=== PATIENT | male | born 1965 | race Caucasian/White ===

== ENCOUNTER 2017-02-27 08:01 | Inpatient (IN) | payer OTHER, BC ==
[~2017-02-27] VITALS: Ht 182.9 cm; Wt 68.0 kg
--- NOTE | 2017-02-27 15:00 | NUR ---
Pre-Assessment note: Pt is a 51 yo male alert and oriented X4. Color good, skin warm and dry. Respirations even and unlabored. NKA. Pt has hx of lymphoma X 4 years. Being treated by PCP. Denies other med or psych hx. Vital signs: B/P 120/85 P: 89 T: 98.2 RR 16 Pulse OX 93% Pt is 6 feet tall and weighs 150 pounds. Substance use history: Heroin 1g daily smoke last use this AM 1/4g smoke Meth 1/4 g daily smoke Last use 1/8th g smoke
--- NOTE | 2017-02-27 16:00 | NUR ---
ADMISSION NOTE: Pt is a 51 yo male alert and oriented X4. Color good, skin warm and dry. Respirations even and unlabored. NKA. Pt has hx of lymphoma X 4 years. Being treated by PCP. Denies other med or psych hx. Vital signs: B/P 120/85 P: 89 T: 98.2 RR 16 Pulse OX 93% Initial COWS 4. Pt is 6 feet tall and weighs 150 pounds. Denies any seizure history. Skin intact. Denies SI/HI. Denies being hospitalized in the last 30 days. No home meds. Substance use history: Heroin 1g daily smoke last use this AM 1/4g smoke Meth 1/4 g daily smoke Last use this AM 1/8th g smoke
[2017-02-27] MEDS ORDERED: NICOTINE 7 MG/24HR PATCH TD PRN (16:30)
[2017-02-27] MEDS ORDERED: ONDANSETRON 4 MG/2 ML VIAL IM PRN (16:30)
[2017-02-27] MEDS ORDERED: HYDROXYZINE PAMOATE 25 MG CAPSULE PO PRN (16:30)
[2017-02-27] MEDS ORDERED: diphenhydrAMINE 50 MG CAPSULE PO PRN (16:30)
[2017-02-27] MEDS ORDERED: NICOTINE POLACRILEX 4 MG GUM-PK OF TEN BC PRN (16:30)
[2017-02-27] MEDS ORDERED: LOPERAMIDE HCL 2 MG CAPSULE PO PRN ×2 (16:30)
[2017-02-27] MEDS ORDERED: MAG HYDROX/AL HYDROX/SIMETH 30 ML LIQUID UDC PO PRN (16:30)
[2017-02-27] MEDS ORDERED: IBUPROFEN 600 MG TABLET PO PRN (16:30)
[2017-02-27] MEDS ORDERED: BUPRENORPHINE HCL 2 MG TAB.SUBL SL PRN (16:30)
[2017-02-27] MEDS ORDERED: ONDANSETRON ODT 4 MG TAB.RAPDIS SL PRN (16:30)
[2017-02-27] MEDS ORDERED: MIRALAX 17 GM POWD.PACK PO PRN (16:30)
[2017-02-27] MEDS ORDERED: ACETAMINOPHEN 325 MG TABLET PO PRN (16:30)
[2017-02-27] MEDS ORDERED: CLONIDINE HCL 0.1 MG TABLET PO PRN (16:30)
[2017-02-27] MEDS ORDERED: DICYCLOMINE HCL 20 MG TABLET PO PRN (16:30)
[2017-02-27 16:40] VITALS: BP 120/85
[2017-02-27 17:23] LABS: *AMPHETAMINE, URINE POSITIVE (NEGATIVE); *BARBITURATE, URINE NEGATIVE (NEGATIVE); *CANNABINOID, URINE NEGATIVE (NEGATIVE); *COCCAINE, URINE NEGATIVE (NEGATIVE); *OPIATE, URINE POSITIVE (NEGATIVE); *PHENCYCLIDINE SCREEN,URINE NEGATIVE (NEGATIVE)
[2017-02-27 18:40] LABS: BASOPHILS % (AUTO) 0.3 % (0.0-2.0); EOSINOPHILS # (AUTO) 0.1 K/uL (0.0-0.7); EOSINOPHILS % (AUTO) 1.6 % (0.0-7.0); HEMATOCRIT 35.4 % (40-50); LYMPHOCYTES # (AUTO) 1.5 K/UL (0.8-4.8); LYMPHOCYTES % (AUTO) 29.5 % (20.5-51.5); MEAN CORPUSCULAR HEMOGLOBIN 22.8 UUG (27.0-31.0); MEAN CORPUSCULAR HGB CONC 31 g/dL (32.0-37.0); MEAN CORPUSCULAR VOLUME 73.7 FL (82.0-92.0); MONOCYTES % (AUTO) 19.7 % (0.0-11.0); NEUTROPHILS # (AUTO) 2.6 K/UL (1.8-8.9); NEUTROPHILS % (AUTO) 48.9 % (38.5-71.5); PLATELET COUNT (AUTO) 278 K/UL (150-450); WHITE BLOOD COUNT (AUTO) 5.2 K/UL (4.0-11.2)
--- NOTE | 2017-02-27 18:42 | NUR ---
END OF SHIFT NOTE: Report given to retail shift leader nurse. 51 yo male admitted for medically supervised withdrawal from Heroin and Meth. Color good, skin warm and dry. Respirations even and unlabored. NKA. Pt has hx of lymphoma X 4 years. Vital signs have remained stable throughout shift. Initial CIWA 4. No prns given. Safety precautions observed. Call light within reach
[2017-02-27 18:43] LABS: ETHANOL < 3 MG/DL (0-0)
[2017-02-27 18:55] LABS: ALANINE AMINOTRANSFERASE 24 U/L (16-63); ALKALINE PHOSPHATASE 86 U/L (50-136); ASPARTATE AMINOTRANSFERASE 23 U/L (15-37); BILIRUBIN,TOTAL 0.2 mg/dL (0.2-1.0); CARBON DIOXIDE 30 mmol/L (21-32); CHLORIDE 105 mmol/L (98-107); GLUCOSE 80 mg/dL (74-106); MAGNESIUM 1.9 mg/dL (1.8-2.4); POTASSIUM 3.8 mmol/L (3.5-5.1); TOTAL PROTEIN, SERUM 5.8 g/dL (6.4-8.2); UREA NITROGEN, BLOOD 9 mg/dL (7-18)
--- NOTE | 2017-02-27 19:15 | NUR ---
START OF SHIFT NOTE : Pt. is 51 years old male admitted on 02/27/2017 for medically supervised withdrawal from Heroin and Meth. NKA. Pt has hx of lymphoma X 4 years. Pt. is in the room resting, complains of mild body ache, weakness, increased level of anxiety. Safety measures in place : bed on lowest position with side rails x2 up for safety, call light within reach. Will continue to monitor closely and offer help.
[2017-02-27 20:00] VITALS: BP 109/70
[2017-02-27 20:10] LABS: BAND % (MANUAL) 7 % (0-10); EOSINOPHILS % (MANUAL) 1 % (0-8); LYMPHOCYTES % (MANUAL) 25 % (20-40); MONOCYTES % (MANUAL) 18 % (2-10); NEUTROPHILS % (MANUAL) 49 % (42-75)
[2017-02-27] MEDS ORDERED: LORAZEPAM 1 MG TABLET PO ONE (21:00)
[2017-02-28 04:00] VITALS: BP 114/68
--- NOTE | 2017-02-28 06:53 | NUR ---
END OF SHIFT NOTE : Pt. is 51 years old male admitted on 02/27/2017 for medically supervised withdrawal from Heroin and Meth. NKA. Pt has hx of lymphoma X 4 years. . Pt remains compliant with the treatment plan. No PRNs were given during my shift. V/S remain WNL. RR=16, even and unlabored, lungs clear upon auscultation, abdomen soft and non- distended. Pt denies nausea, vomiting and diarrhea. COWS taken when pt. was alert during the night, LAST COWS= 3 at 0400 , [id number]=958 ml, voided x1 , slept 10 hours. Safety measures in place : bed on lowest position with side rails x2 up for safety, call light within reach. Will continue to monitor closely and offer help.
--- NOTE | 2017-02-28 07:11 | NUR ---
Start of Shift Endorsement received from nightshift nurse. Pt is a 51 y/o male admitted for Heroin and meth dependence. Pt has been placed on a 5 day Subutex taper that has been scheduled to began today, 02/28/17. PT received one time dose of Ativan per Dr. Triana. Pt is tolerating the detox process and mildly withdrawing AEB COWS 3. Pt reports sleeping 10 hours and reports feelings rested. . PT is alert and oriented x4. Pt is in STABLE condition at this time. Remains compliant with medication and diet regimen. All needs have been met, All safety measures in place per hospital policy. Bed in lowest position, side rails up x2, call-light within reach. Will continue to monitor
[2017-02-28 08:00] VITALS: BP 111/61
[2017-02-28] MEDS ORDERED: GABAPENTIN 300 MG CAPSULE PO SCH (09:00)
[2017-02-28] MEDS ORDERED: TUBERCULIN,PURIF.PROT.DERIV. 5 TU/0.1 ML TEST ID ONE (09:00)
[2017-02-28] MEDS: ENOXAPARIN SODIUM 40 MG/0.4 ML DISP.SYRIN SQ SCH (09:03)
[2017-02-28] MEDS: MULTIVITAMINS,THERAPEUTIC TABLET PO SCH (09:03)
[2017-02-28] MEDS: BUPRENORPHINE HCL 2 MG TAB.SUBL SL SCH ×4 (09:04→21:00)
--- NOTE | 2017-02-28 10:42 | NUR ---
PRN Medication Administered PRN Ativan 2mg, Subutex 4mg, Zofran 4mg IM, Bentyl and Clonidine for COWS 25, CIWA 17. has been notified.
[2017-02-28] MEDS: LORAZEPAM 1 MG TABLET PO PRN (10:46)
--- NOTE | 2017-02-28 11:10 | NUR ---
Medication re-assessment Medications were effective, pt presents with COWS 16, CIWA 9 at this time. PT continues to present with moderate course tremors.
[2017-02-28] MEDS ORDERED: KETOROLAC TROMETHAMINE 30 MG INJ IM PRN (11:15)
[2017-02-28 12:00] VITALS: BP 120/82
--- NOTE | 2017-02-28 12:40 | NUR ---
1:1 Pt has been placed on a 1:1 observation for being high risk for falls. Pt will remain until farther evaluation by the MD.
[2017-02-28] MEDS: METHOCARBAMOL 750 MG TABLET PO PRN (13:28)
--- NOTE | 2017-02-28 13:28 | NUR ---
PRN Robaxin and Vistaril Administered PRN Robaxin and VISTARIL for withdrawal symptoms, pt presents with COWS score of 16 and CIWA 9.
[2017-02-28] MEDS ORDERED: LORAZEPAM 1 MG TABLET PO ONE ×2 (13:30→21:00)
--- NOTE | 2017-02-28 14:00 | NUR ---
Medication Re-assessment Medication was ineffective. PT continues to present with severe withdrawals. MD has been notified
[2017-02-28] MEDS: DICYCLOMINE HCL 20 MG TABLET PO SCH ×2 (14:04→21:00)
[2017-02-28] MEDS: GABAPENTIN 300 MG CAPSULE PO SCH ×2 (14:05→21:00)
--- NOTE | 2017-02-28 15:00 | NUR ---
COWS/CIWA eval COWS 21 and CIWA 30. Pt is severely withdrawing. Dr. Triana and Dr. Reilly have been notified.
[2017-02-28] MEDS: QUETIAPINE FUMARATE 25 MG TABLET PO PRN ×2 (15:07→15:30)
--- NOTE | 2017-02-28 15:30 | NUR ---
PRN Seroquel Administered Seroquel 25mg for severe agitation and hallucinations.
[2017-02-28] MEDS ORDERED: LORAZEPAM 2 MG/1 ML VIAL IM ONE ×2 (16:00→16:45)
--- NOTE | 2017-02-28 16:00 | NUR ---
Medication Re-assessment Medication was ineffective. PT continues to present with CIWA of 30, COWS [address] at [address] Dr. lopez have been notified.
--- NOTE | 2017-02-28 16:01 | NUR ---
Ativan IM Administered One time dose of Ativan 2mg IM per Dr. Triana.
--- NOTE | 2017-02-28 16:09 | NUR ---
Notified Dr. Collins that patient is having active visual and auditory hallucinations. He is attempting to grab objects not present on the chair. Patient is also having tactile hallucinations and sees bugs on his skin and in his bed. Very agitated and restless at this time. Explained medications that have been ordered and administered up to this point to Dr. Collins. He gave TO orders for Zyprexa 10mg IM now. Orders were read back and verified with physician. Notified primary nurse and charge nurse.
[2017-02-28] MEDS ORDERED: OLANZAPINE 10 MG VIAL IM ONE ×2 (16:15→17:30)
--- NOTE | 2017-02-28 16:20 | NUR ---
Zyprexa Administered one time order of Zyprexa per Dr. Reilly for severe agitation.
--- NOTE | 2017-02-28 16:21 | NUR ---
Medication Re-assessment PT continues to be agitated and presenting with severe course tremors. Medications was not effective. CIWA 30
[2017-02-28] MEDS ORDERED: diphenhydrAMINE 50 MG/1 ML VIAL IM ONE (16:45)
--- NOTE | 2017-02-28 16:51 | NUR ---
Benadryl and Ativan PT presents with severe agitation, ongoing auditory and visual hallucinations and severe course tremors. Administered Ativan 2mg IM and Benadryl 50mg IM per Dr. Triana.
--- NOTE | 2017-02-28 17:21 | NUR ---
Medication re-assessment Medication has been ineffective, pt continues to present with severe agitation, auditory and visual hallucinations and severe tremors.
--- NOTE | 2017-02-28 17:38 | NUR ---
Zyprexa PT continues to presents with severe agitation, ongoing auditory and visual hallucinations and severe course tremors. Administered 10mg Zyp[address]xa per Dr. Triana.
--- NOTE | 2017-02-28 18:10 | NUR ---
Medication Re-assessment Medication is ineffective AEB continued agitation, continued hallucinations, HR: 102. has been notified. Will continue monitoring the pt.
--- NOTE | 2017-02-28 18:57 | NUR ---
Pt is on a 2:1 at this time for safety reasons. PT will be continued to be monitored and protected from self harm. wants pt under observation at this time. Pt continues to present with severe agitation and tremors.
--- NOTE | 2017-02-28 19:02 | NUR ---
End of Shift Endorsement given to nightshift nurse. Pt is a 51 y/o male admitted for Heroin and meth dependence. Pt has been placed on a 5 day Subutex taper. The taper has been initiated at COWS of 12. Pt is experiencing severe agitation, severe auditory and visual hallucinations and severe tremors. Pt has been placed on 2:1 for safety reasons and will remain 2:1 until farther evaluation. Pt is severely withdrawing AEB COWS [address] Triana is aware. Pt has received Ativan 2mg IM x3, Ativan 2mg PO, Subutex 4mg x1, Zyprexa 10mg x2, Seroquel 25mg and 50mg Benadryl IM. Medications were not effective, pt continues to experience severe withdrawal symptoms. Dr. Triana and Dr. Reilly are aware, pt will be re-evaluated for farther treatment. Pt is not compliant with diet or medication regimen.. All needs have been met, All safety measures in place per hospital policy. Bed in lowest position, side rails up x2, call-light within reach. Will continue to monitor
--- NOTE | 2017-02-28 19:15 | NUR ---
START OF SHIFT NOTE : Pt. is 51 years old male admitted on 02/27/2017 for medically supervised withdrawal from Heroin and Meth. NKA. Pt has hx of lymphoma X 4 years. Pt. placed on 5 day Subutex taper on 02/26/2017. Pt. is 2:1 for extreme agitation and restlessness, pt. is disoriented, doesnt follow commands, cant take PO medication , no eyes contact. Pt is experiencing severe auditory and visual hallucinations and severe tremors. IV placement order is pending. Safety measures in place : bed on lowest position with side rails x2 up for safety, call light within reach. Will continue to monitor closely and offer help.
[2017-02-28 20:00] VITALS: BP 115/95
[2017-02-28] MEDS: CLONIDINE HCL 0.1 MG TABLET PO SCH (21:00)
[2017-02-28] MEDS: IV NS 1000 ML 1,000 ML IV SCH (23:15)
[2017-03-01] VITALS: BP 113/68
[2017-03-01 04:00] VITALS: BP 135/95
[2017-03-01] MEDS: IV NS 1000 ML 1,000 ML IV SCH ×3 (07:15→23:15)
--- NOTE | 2017-03-01 07:20 | NUR ---
Start of Shift Endorsement received from nightshift nurse. Pt is a 51 y/o male admitted for Heroin and meth dependence. Pt has been placed on a 5 day Subutex taper. Pt continues to be 1:1 for safety reasons. PT is severely withdrawing AEB COWS 16, CIWA 19. Pt did not receive any PRN medications. PT slept for 3 hours according to the nurse. VS WNL. Full Code . PT is alert and oriented to person and place. Remains compliant with medication and diet regimen. All needs have been met, All safety measures in place per hospital policy. Bed in lowest position, side rails up x2, call-light within reach. Will continue to monitor
[2017-03-01 08:00] VITALS: BP 124/78
[2017-03-01] MEDS: LORAZEPAM 1 MG TABLET PO PRN (09:08)
[2017-03-01] MEDS: CLONIDINE HCL 0.1 MG TABLET PO SCH ×2 (09:08→20:35)
[2017-03-01] MEDS: DICYCLOMINE HCL 20 MG TABLET PO SCH ×3 (09:08→20:37)
[2017-03-01] MEDS: ENOXAPARIN SODIUM 40 MG/0.4 ML DISP.SYRIN SQ SCH (09:09)
[2017-03-01] MEDS: MULTIVITAMINS,THERAPEUTIC TABLET PO SCH (09:09)
[2017-03-01] MEDS: BUPRENORPHINE HCL 2 MG TAB.SUBL SL SCH ×3 (09:09→20:36)
[2017-03-01] MEDS: GABAPENTIN 300 MG CAPSULE PO SCH ×3 (09:09→20:36)
[2017-03-01] MEDS ORDERED: QUETIAPINE FUMARATE 25 MG TABLET PO PRN (09:30)
[2017-03-01 12:00] VITALS: BP 97/61
[2017-03-01 12:07] LABS: HEPATITIS B SURFACE AG Negative (Negative)
[2017-03-01 16:00] VITALS: BP 105/67
[2017-03-01] MEDS ORDERED: BUPRENORPHINE HCL 2 MG TAB.SUBL SL PRN (16:15)
[2017-03-01] MEDS ORDERED: LORAZEPAM 1 MG TABLET PO PRN (16:15)
--- NOTE | 2017-03-01 18:58 | NUR ---
End of Shift Endorsement given to nightshift nurse. Pt is a 51 y/o male admitted for Heroin and meth dependence. Pt has been placed on a 5 day Subutex taper. Pt is tolerating the taper, continues to experience moderate withdrawals AEB COWS 6 at 1600. Pt remains on 1:1 for safety reasons, pt spent the whole day in bed. Pt was awake intermittently. Pt is oriented x2, to place and person. Pt received one time dose of Ativan 2mg for severe agitation, medication was effective. Intake: 500ml, Void x1, BM x0. VS WNL. Full code. Pt is stable at this time. All needs have been met, All safety measures in place per hospital policy. Bed in lowest position, side rails up x2, call-light within reach. Will continue to monitor
--- NOTE | 2017-03-01 18:58 | NUR ---
START OF SHIFT NOTE: Patient is a 51 year old male admitted to [facility] on 02/27/2017 fo Opioid and Methamphetamine dependence. Patient continue 5 Day Subutex Taper. Patient tolerated well without ASE. Patient remains compliant with treatment, medications, and diet regime. Patient reports NKA, is on Full Code, Regular Diet, Fall and Seizures Precautions. Patient denies seizures history. PMH: Anxiety, Depression, Substance use disorder, Lymphoma. Patient report Substance Use History: 1."Heroin smoke 1 gram every day last 6 months. Last used 1/4 gram on 02/27/2017". 2."Methamphetamine 1/gram smoke every day last month. Last used 1/8 gram on 02/27/2017". Patient reports treatment/detox "one time 8 years ago". Upon endorsement patient is in his room alert and oriented x2 to place and person. Patient's 1:1 sitter for safety. COWS 7. VSWNL. Respirations unlabored and even. Lungs Sounds are clear thoroughly. Abdomen is soft, non-tender. Bowels Sounds presents in all x4 quadrants. Skin is intact, warm, and dry. All needs met. Safety measures in place: Call light within reach, bed locked, and in lowest position, padded bed rails up bilaterally. Patient endorsed by day shift nurse, report received. Addendum: 03/02/17 at 0236 by CARIDAD LAWLER RN Patient is a 51 year old male admitted to [facility] on 02/27/2017 for Opioid and Methamphetamine dependence. Addendum: 03/02/17 at 0237 by CARIDAD LAWLER RN Patient reports Substance Use History:
[2017-03-01 20:00] VITALS: BP 103/77
[2017-03-01] MEDS ORDERED: LORAZEPAM 1 MG TABLET PO ONE (21:00)
--- NOTE | 2017-03-01 21:00 | NUR ---
PRN SEROQUEL 50 MG 2 TAB PO ADMINISTRATION PRN Seroquel 50 mg 2 tab. PO administrated with full glass of water as ordered. Patient tolerated well. All needs met. Safety measures on place. 1:1 sitter at bedside for safety. Call light within reach, bed in lowest position and locked, padded rails up bilaterally rails up bilaterally. Will continue to monitor closely.
--- NOTE | 2017-03-01 22:00 | NUR ---
RE-ASSESSMENT Patient is sleeping. Respirations even and unlabored. RR:15. PRN Seroquel 50 mg 2 tab PO administrated to patient @2100 was effective. All needs met. 1:1 sitter at bedside for safety. Safety measures on place. Call light within reach, bed in lowest position and locked, padded rails up bilaterally rails up bilaterally. Will continue to monitor closely.
[2017-03-02] VITALS: BP 96/55
--- NOTE | 2017-03-02 | NUR ---
COWS/CIWA DEFERRED COWS/CIWA deferred d/t patient sleeping to assess while patient is awake. 1:1 sitter at bedside for safety. Safety measures on place by hospital policy: Call light within reach, bed in lowest position and locked, side rails up x2. Will continue to monitor closely.
[2017-03-02 04:00] VITALS: BP 102/60
--- NOTE | 2017-03-02 07:09 | NUR ---
END OF SHIFT NOTE: Patient is a 51 year old male admitted to [facility] on 02/27/2017 for Opioid and Methamphetamine dependence. Patient continue 5 Day Subutex Taper. Patient tolerated well without ASE. Patient remains compliant with treatment, medications, and diet regime. Patient reports NKA, is on Full Code, Regular Diet, Fall and Seizures Precautions. Patient denies seizures history. PMH: Anxiety, Depression, Substance use disorder, Lymphoma. Patient reports Substance Use History: 1."Heroin smoke 1 gram every day last 6 months. Last used 1/4 gram on 02/27/2017". 2."Methamphetamine 1/gram smoke every day last month. Last used 1/8 gram on 02/27/2017". Last COWS 8@0400. COWS's taken when patient's awake during night. Last VS @0400: T: 98.1, BP: 102/60, HR: 73, RR:14, RA O2Sat: 94%, pain level: "0/10". Respirations unlabored and even. Skin is intact, warm and dry to touch. PRN Seroquel 50 mg 2 tab PO administrated to patient @2100 was effective. Patient slept 8 hours, intake 500 ml, voided x1. Encouraged fluids intake as tolerated. All needs met. 1:1 sitter at bedside for safety. Safety measures on place. Call light within reach, bed in lowest position and locked, padded rails up bilaterally. Patient endorsed to day shift nurse. Report given.
[2017-03-02] MEDS: IV NS 1000 ML 1,000 ML IV SCH (07:15)
--- NOTE | 2017-03-02 07:15 | NUR ---
Start Of Shift Report Received. Pt is a 51 y/o male admitted for Heroin and meth dependence. Pt has been placed on a 5 day Subutex taper. Pt is tolerating the taper, continues to experience moderate withdrawals AEB his last COWS 8 at 0400. Pt remains on 1:1 for safety reasons, pt currently in bed resting with eyes closed. Pt refused to have an IV, pt is full code regular diet on fall precautions. Pt did not receive any PRN medications during the night time per cnc machinist 2nd shift nurse. Encouraged fluids to facilitate with detox process. All safety measures in place, will continue to monitor and provide support.
[2017-03-02 08:00] VITALS: BP 112/68
[2017-03-02] MEDS ORDERED: BUPRENORPHINE HCL 2 MG TAB.SUBL SL SCH (09:00)
[2017-03-02] MEDS: GABAPENTIN 300 MG CAPSULE PO SCH ×3 (09:27→20:35)
[2017-03-02] MEDS: DICYCLOMINE HCL 20 MG TABLET PO SCH ×3 (09:28→20:35)
[2017-03-02] MEDS: CLONIDINE HCL 0.1 MG TABLET PO SCH ×2 (09:28→20:35)
[2017-03-02] MEDS: MULTIVITAMINS,THERAPEUTIC TABLET PO SCH (09:28)
[2017-03-02] MEDS: ENOXAPARIN SODIUM 40 MG/0.4 ML DISP.SYRIN SQ SCH (09:30)
[2017-03-02 12:00] VITALS: BP 124/73
[2017-03-02] MEDS: BUPRENORPHINE HCL 2 MG TAB.SUBL SL SCH ×2 (15:53→20:35)
[2017-03-02 16:00] VITALS: BP 107/65
--- NOTE | 2017-03-02 19:12 | NUR ---
End Of Shift Pt is a 51 y/o male admitted for Heroin and meth dependence. Pt has been placed on a 5 day Subutex taper. Pt is tolerating the taper, continues to experience moderate withdrawals AEB COWS 6 at 1600. Pt remains on 1:1 for safety reasons, pt spent the whole day in bed. Pt was awake intermittently. Pt is oriented x2, to place and person. Pt did not receive any PRN medications during the day, pt has been improving. Intake: 1850ml, Void x2, BM x0. VS WNL. Pt is stable at this time. All needs have been met, All safety measures in place per hospital policy. Bed in lowest position, side rails up x2, call-light within reach. Will continue to monitor
--- NOTE | 2017-03-02 19:15 | NUR ---
Start of Shift Patient Received. Patient is in bed sleeping but easily aroused to verbal stimuli. Breathing even and non labored. Patient is a 51 year old male admitted on 02/27/17 for Opiate Dependence under the care of Dr. Triana. Patient continues on a 5 day Subutex taper. No known allergies. Wishes to be full code. Following a Regular diet. Placed on fall precautions with 1:1 ordered for safety. Skin noted intact. Past medical history of Lymphoma. Per endorsement, patient has been compliant with plan of care and tolerating medications well. No episodes of visual hallucinations. Patient able to participate in social activities as tolerated. No PRN medications administered. All needs attended to promptly. Will continue plan of care as ordered.
[2017-03-02 20:32] VITALS: BP 121/82
[2017-03-03] VITALS: BP 98/60
[2017-03-03 04:00] VITALS: BP 102/63
--- NOTE | 2017-03-03 07:17 | NUR ---
End of Shift Patient is in his room sleeping but easily aroused to verbal stimuli. Breathing even and non labored. Patient is a 51 year old male admitted on 02/27/17 for Opiate Dependence under the care of Dr. Triana. Patient continues on a 5 day Subutex taper. No known allergies. Full Code. Regular Diet. Placed on fall precautions with 1:1 ordered for safety. Skin noted intact. Patient has been compliant with plan of care and tolerating medications well. No episodes of visual hallucinations during shift. No PRN medications administered. All needs attended to promptly. Will endorse to continue plan of care as ordered.
--- NOTE | 2017-03-03 07:45 | NUR ---
START OF SHIFT Rcvd endorsement from ongoing nurse, client is in room, he is a/o x 4, he presents with depressed mood, flat affect. He reports restless legs, body aches, abdominal cramps, and chills. He is on 1:1 sitter promoting safety. Encouraged client to attend group therapy for skills to maintain sober. Encouraged client to increase PO fluid as tolerated to facilitate detox. Client is a 51 y/o male, admitted to [facility] for withdrawal from heroin. Client is on 5 day Subutex taper (day 4), tolerating well. Last COWS 8 @ 2000. Client had an uneventful night, he slept 8 hrs. He denies a hx of withdrawal-induced seizures, Client reports of NKA, he is full code, Regular diet. Side rails x 2 up/padded for seizure precautions. Call light within reach.
[2017-03-03 08:30] VITALS: BP 118/71
[2017-03-03] MEDS: ENOXAPARIN SODIUM 40 MG/0.4 ML DISP.SYRIN SQ SCH (08:35)
[2017-03-03] MEDS: METHOCARBAMOL 750 MG TABLET PO PRN (08:36)
[2017-03-03] MEDS: DICYCLOMINE HCL 20 MG TABLET PO SCH ×2 (08:36→14:36)
[2017-03-03] MEDS: GABAPENTIN 300 MG CAPSULE PO SCH ×3 (08:36→20:53)
[2017-03-03] MEDS: BUPRENORPHINE HCL 2 MG TAB.SUBL SL SCH ×3 (08:36→20:53)
[2017-03-03] MEDS: MULTIVITAMINS,THERAPEUTIC TABLET PO SCH (08:36)
--- NOTE | 2017-03-03 08:36 | NUR ---
PRN Robaxin 750mg PO administered for generalized muscle pain 10/13. Call light within reach.
[2017-03-03] MEDS: CLONIDINE HCL 0.1 MG TABLET PO SCH ×2 (08:37→20:53)
--- NOTE | 2017-03-03 09:36 | NUR ---
Reassessment PRN Robaxin 750mg PO, client verbalizes relief from generalized muscle pain 2/10, but tolerable. Call light within reach.
[2017-03-03 12:55] VITALS: BP 109/61
[2017-03-03 16:55] VITALS: BP 97/61
--- NOTE | 2017-03-03 19:06 | NUR ---
END OF SHIFT Endorsed to incoming nurse, client is a 51 y/o male, he is a/o x 4, admitted to [facility] for withdrawal from heroin. Client is on 5 day Subutex taper (day 4), tolerating well. Last COWS 5 @ 1600. PRN Robaxin 750mg PO administered for generalized muscle pain 10/13, noted effective. He continue to present with anxious mood, flat affect, chills, and fatigue. Encouragement needed to attend to group therapy. Adequate PO fluid intake 1650mL, void x 2. He denies hx of withdrawal-induced seizures, Client reports NKA, he is full code, Regular diet. Side rails x 2 up/padded for seizure precautions. Call light within reach.
--- NOTE | 2017-03-03 19:30 | NUR ---
START OF SHIFT Pt is a a 51 y/o male, admitted for Heroin dependency.Pt is A/O X 4, continues on 5 day Subutex taper and is tolerating well. Last COWS 5 @ 1600. PMH of Lymphoma.No HX of seizures noted. Pt reports NKA, he is full code, Regular diet. All safety measures in place per hospital policy, call light with in reach,no c/o pain or s/s of acute distress noted, will continue to monitor.
[2017-03-03 20:00] VITALS: BP 110/73
[2017-03-03] MEDS: DICYCLOMINE HCL 10 MG CAPSULE PO SCH (20:54)
--- NOTE | 2017-03-04 | NUR ---
COWS deferred AND V/S refused. COWS deferred AND V/S refused d/t patient sleeping.Pt had requested not to woken up for V/S if he is sleeping.Safety measures on place per hospital policy: Call light within reach. Will continue to monitor closely.
--- NOTE | 2017-03-04 04:00 | NUR ---
COWS deferred AND V/S refused. COWS deferred AND V/S refused d/t patient sleeping.Pt had requested not to woken up for V/S if he is sleeping.Safety measures on place per hospital policy. Call light within reach. Will continue to monitor closely.
--- NOTE | 2017-03-04 06:31 | NUR ---
END OF SHIFT Pt is a a 51 y/o male, admitted for Heroin dependency.Pt is A/O X 4, continues on 5 day Subutex taper and is tolerating well. Last COWS 5 @ 2000.Midnight and 0400 assessments dferred d/t pt sleeeping. PMH of Lymphoma.No HX of seizures noted. Pt reports NKA, he is full code, Regular diet.No PRN meds given;Pt slept 7 hrs,fluid intake was 1437 mls,voided x 1 . All safety measures in place per hospital policy, call light with in reach,no c/o pain or s/s of acute distress noted, will continue to monitor.
--- NOTE | 2017-03-04 07:30 | NUR ---
start of shift note: received pt from shift stacker nurse, pt is in stable condition pt is asleep at this time. pt is admitted to [facility] for opiate/meth withdrawal. pt's last cows 5. will continue to monitor pt for any changes and continue to meet pts needs. no A/R to medication noted at this time
[2017-03-04 09:00] VITALS: BP 100/73
[2017-03-04] MEDS ORDERED: BUPRENORPHINE HCL 2 MG TAB.SUBL SL SCH (09:00)
[2017-03-04] MEDS: GABAPENTIN 300 MG CAPSULE PO SCH ×3 (09:32→20:54)
[2017-03-04] MEDS: CLONIDINE HCL 0.1 MG TABLET PO SCH ×2 (09:32→20:54)
[2017-03-04] MEDS: DICYCLOMINE HCL 10 MG CAPSULE PO SCH ×3 (09:32→20:54)
[2017-03-04] MEDS: MULTIVITAMINS,THERAPEUTIC TABLET PO SCH (09:32)
[2017-03-04] MEDS: ENOXAPARIN SODIUM 40 MG/0.4 ML DISP.SYRIN SQ SCH (09:33)
[2017-03-04] MEDS: DOCUSATE SODIUM 250 MG CAPSULE PO SCH (09:51)
--- NOTE | 2017-03-04 09:51 | NUR ---
prn miralax: pt with complaints of constipation. will re-asses effectiveness of medication throughout the shift
[2017-03-04 13:00] VITALS: BP 121/82
[2017-03-04] MEDS: METHOCARBAMOL 750 MG TABLET PO PRN (14:59)
--- NOTE | 2017-03-04 15:00 | NUR ---
PRN ADMINISTRATION: PT WITH COMPLAINTS OF SORE BODY ACHES, PAIN SCALE 6/10 PRN ROBAXIN WAS ADMINISTERED
--- NOTE | 2017-03-04 16:00 | NUR ---
PRN - REASSESSMENT: PT VERBALIZED WITH HELP. BODY ACHES HAVE DIMINISHED AND PAIN LEVEL IS 3/10.
[2017-03-04 17:15] VITALS: BP 118/77
--- NOTE | 2017-03-04 18:56 | NUR ---
END OF SHIFT NOTE: PT IS IN STABLE CONDITION, PT IS ADMITTED TO [facility] FOR OPIATE/METH WITHDRAWAL/DEPENDENCE. PT'S LAST COWS 3. PT COMPLETED TAPER WELL NO A/R TO MEDICATION. WILL ENDORSE PT TO NURSING INFORMATICS ANALYST NURSE
--- NOTE | 2017-03-04 19:11 | NUR ---
Start of shift note Received report from day shift nurse. Pt is a 51 yo male, A+Ox4, presenting to [facility] for Opiate/Meth dependence. Pt has NKA, is on full code status, and on Regular diet. Pt is on Fall precautions. Pt has HX of Lymphoma. Pt has completed a 5 day Subutex taper, tolerated well, and is due for discharge tomorrow. No s/s of distress noted at this time. Respirations even and unlabored. Will continue to monitor.
[2017-03-04] MEDS ORDERED: GABA-534 PO ×2 (20:00)
[2017-03-04] MEDS ORDERED: METH-406 PO (20:00)
[2017-03-04] MEDS ORDERED: DICY10CA21 PO (20:00)
[2017-03-04] MEDS ORDERED: DIPH50CA37 PO (20:00)
[2017-03-04] MEDS ORDERED: IBUP-1955 PO (20:00)
[2017-03-04] MEDS ORDERED: CLON0.1T14 PO (20:00)
[2017-03-04] MEDS ORDERED: HYDR-3895 PO (20:00)
[2017-03-04 20:18] VITALS: BP 127/78
[2017-03-05 00:47] VITALS: BP 115/73
[2017-03-05 04:04] VITALS: BP 119/75
--- NOTE | 2017-03-05 06:51 | NUR ---
End of shift note Pt is a 51 yo male, A+Ox4, presenting to [facility] for Opiate/Meth dependence. Pt has NKA, is on full code status, and on Regular diet. Pt is on Fall precautions. Pt has HX of Lymphoma. Pt has completed a 5 day Subutex taper, tolerated well, and is due for discharge today. Pt slept for a total of 8 HRS. Last COWS: 1 @0400. No s/s of distress noted at this time. Respirations even and unlabored. Will endorse to day shift nurse.
[2017-03-05 08:00] VITALS: BP 109/76
--- NOTE | 2017-03-05 08:05 | NUR ---
START OF SHIFT: RECEIVED PT A/O X 4. HE STATES HE FEELS ENTHUSIASTIC ABOUT DISCHARGING HOME TODAY AND ATTENDING 12 STEP MEETINGS. MEDICATED ORDERED. SUBUTEX TAPER COMPLETED. COWS 2. WILL CONTINUE WITH DISCHARGE PROCESS.
[2017-03-05] MEDS: MULTIVITAMINS,THERAPEUTIC TABLET PO SCH (08:45)
[2017-03-05] MEDS: DICYCLOMINE HCL 10 MG CAPSULE PO SCH (08:45)
[2017-03-05] MEDS: DOCUSATE SODIUM 250 MG CAPSULE PO SCH (08:45)
[2017-03-05] MEDS: GABAPENTIN 300 MG CAPSULE PO SCH (08:45)
[2017-03-05 08:46] VITALS: BP 109/76
[2017-03-05] MEDS: CLONIDINE HCL 0.1 MG TABLET PO SCH (08:46)
--- NOTE | 2017-03-05 09:57 | NUR ---
DISCHARGE: PT IS A/O X4. HE DENIES S/I AND H/I. HE STATES HE IS MOTIVATED TO STAY CLEAN AND FEELS ENTHUSIASTIC. BELONGINGS RETURNED. EDUCATED PT ON DISCHARGE INSTRUCTIONS AND MEDICATIONS. MOVIE PRODUCER ESCORTED PT TO [facility] WHERE HE WAS TRANSPORTED BY A FRIEND HOME AT 0953.
== END 2017-03-05 09:53 | disposition home or self-care (01) | DRG 895 ==
LOC: SRC 14:39
PROVIDERS: ADMIT Internal Medicine; ATTEND Internal Medicine
PROC: HZ2ZZZZ Detoxification Services for Substance Abuse Treatment (ICD-10-PCS; principal; 2017-02-27)
PROC: HZ31ZZZ Individual Counseling for Substance Abuse Treatment, Behavioral (ICD-10-PCS; 2017-02-28)
DX: F11.23 Opioid dependence with withdrawal (principal); C85.90 Non-Hodgkin lymphoma, unspecified, unspecified site; F15.259 Other stimulant dependence with stimulant-induced psychotic disorder, unspecified; F17.210 Nicotine dependence, cigarettes, uncomplicated; D50.9 Iron deficiency anemia, unspecified; F13.90 Sedative, hypnotic, or anxiolytic use, unspecified, uncomplicated; F32.9 Major depressive disorder, single episode, unspecified; F41.9 Anxiety disorder, unspecified; Z20.5 Contact with and (suspected) exposure to viral hepatitis; Z82.49 Family history of ischemic heart disease and other diseases of the circulatory system; Z92.21 Personal history of antineoplastic chemotherapy; F15.23 Other stimulant dependence with withdrawal
CPT/HCPCS: 36415; 80307; 80324; 80361; 83735; 85025; 86592; 86705; 86803; 87340; 87806; G0480; J1200; J1650; J2060; J2358; J2405